=== PATIENT | female | born 2000 | race Two or more races ===

== ENCOUNTER 2024-02-22 21:21 | Emergency (ER) | payer MEDICAID, OTHER ==
[~2024-02-22] VITALS: Ht 157.5 cm; Wt 49.9 kg
[2024-02-22] MEDS ORDERED: FAMOTIDINE/PF INJ 20 MG/2 ML VIAL IV ONE ×2 (22:41→23:00)
[2024-02-22] MEDS ORDERED: IV NS 0.9% 1,000 ML BAG IV ONE (23:00)
[2024-02-22] MEDS ORDERED: ONDA4TAB5 PO (23:03)
[2024-02-22] MEDS ORDERED: ONDANSETRON HCL/PF 4 MG/2 ML VIAL ONE (23:12)
[2024-02-22] MEDS: ONDANSETRON HCL/PF 4 MG/2 ML VIAL IVP ONE (23:30)
[2024-02-22] MEDS: IV NS 0.9% 1,000 ML BAG IV ONE (23:30)
[2024-02-22] MEDS: ONDANSETRON 4 MG TAB.RAPDIS SL ONE (23:33)
[2024-02-23 00:43] VITALS: BP 118/80; TEMP 98.2; O2SAT 98
== END 2024-02-23 00:43 | disposition home or self-care (01) ==
LOC: ER 21:32
DX: R11.2 Nausea with vomiting, unspecified (principal)
CPT/HCPCS: 99283; 96374; 96361; J3490; J2405; J7030